=== PATIENT | female | born 1950 | race Caucasian/White ===

== ENCOUNTER 2016-11-03 17:53 | Emergency (ER) | payer OTHER ==
[~2016-11-03] VITALS: Ht 162.6 cm; Wt 54.9 kg
[2016-11-03 18:07] VITALS: TEMP 36.7; Ht 162.6 cm; Wt 54.9 kg
[2016-11-03] MEDS ORDERED: SODIUM CHLORIDE 0.9% 1000ML 1,000 ML IV STA (18:18)
--- NOTE | 2016-11-03 18:22 | EMERGENCY ROOM VISIT NOTE ---
History Report prepared by Blank: Yoselin Macias Under the Supervision of: Dr. Daniela Monte M.D. First contact with patient: 18:09 Chief Complaint: DIZZY Stated Complaint: DIZINESS - SENT BY [facility] History of Present Illness The patient is a 66 year old female who presents to the Emergency Room with complaints of persistent dizziness throughout the day today. She describes it as feeling shaky and woozy. Her symptoms are worst when she is changes position. She does not feel the room spinning. The patient initially went to Urgent Care for her symptoms but was referred to the emergency room. Upon arrival, she also complains of mild shortness of breath and an occasional fluttering sensation in her chest. The patient does report a fall that occurred 4 weeks ago after slipping on a step. She has been having improving left leg soreness since then. Denies cough, chest pain, cough, nausea, vomiting, bowel troubles, rectal bleeding, or other complaints. Source of History: patient Onset: today Position: other (Global) Quality: other (shaky, woozy) Timing: other (persistent) Modifying Factors (Worsening): other (position changes) Associated Symptoms: + SOB, No chest pain, No cough, No hematochezia, No nausea, No vomiting Review of Systems See HPI for pertinent positives & negatives. A total of 10 systems reviewed and were otherwise negative. Past Medical & Surgical Medical Problems: (1) Osteoporosis Family History No pertinent family history stated. Social History Smoking Status: Never Smoker Marital Status: Housing Status: lives with family Occupation Status: other (housewife) Current/Historical Medications Scheduled Aspirin (Aspirin Ec), 81 MG PO DAILY Calcium Carbonate (Calcium), 600 MG PO BID Ibandronate Sodium (Boniva), 150 MG PO MONTHLY Multivitamin (Multivitamin), 1 TAB PO DAILY Scheduled PRN Meclizine HCl (Meclizine HCl), 1 TAB PO Q8 PRN for vertigo Allergies Coded Allergies: Sulfa Drugs (Unverified Adverse Reaction, Intermediate, RASH, 11/03/16) Physical Exam Vital Signs Date Time Temp Pulse Resp B/P Pulse Ox O2 Delivery O2 Flow Rate FiO2 11/03/16 21:02 66 16 125/63 98 Room Air 11/03/16 19:33 78 18 125/72 98 Room Air 11/03/16 18:31 71 149/83 96 87 145/76 76 134/76 11/03/16 18:20 91 11/03/16 18:07 36.7 84 16 144/80 100 Room Air Physical Exam Vital signs reviewed. General: Well-appearing 66 year old female, in no significant distress. HEENT: No scleral icterus, PERRLA, neck supple. Atraumatic. Cardiovascular: Regular rate and rhythm, no extra sounds. Pulmonary: Clear to auscultation bilaterally, normal work of breathing. Abdomen: Soft, nontender, nondistended, positive bowel sounds. Musculoskeletal: Atraumatic, no peripheral edema. Neurologic: Patient awake alert and oriented x 3, full strength in all 4 extremities. Cranial nerves 2 through 12 grossly intact. Skin: Warm, dry, no rash Medical Decision & Procedures ER Provider Diagnostic Interpretation: CT results as stated below per my review and radiologist interpretation: CT HEAD WITHOUT CONTRAST (CT) CLINICAL HISTORY: Head trauma, vertigo. COMPARISON STUDY: No previous studies for comparison. TECHNIQUE: Axial CT of the brain is performed from the vertex to the skull base. IV contrast was not administered for this examination. CT DOSE: 537.48 mGy.cm FINDINGS: No intra or extra-axial mass lesions are visualized. There is no CT evidence of acute cortical infarction. There is no evidence of midline shift. There is no acute hemorrhage. No calvarial fractures are visualized. There are patchy white matter hypodensities likely on a small vessel basis. There is no evidence of pathologic ventricular dilatation. There is no evidence of acute sinusitis IMPRESSION: No acute intracranial findings Electronically signed by: Vadim Baker M.D. 11/03/2016 7:55 PM Dictated Date/Time: 11/03/2016 7:54 PM Laboratory Results 11/03/16 18:40 Red Blood Count 4.64, Mean Corpuscular Volume 87.9, Mean Corpuscular Hemoglobin 30.4, Mean Corpuscular Hemoglobin Concent 34.6, Mean Platelet Volume 10.4, Neutrophils (%) (Auto) 63.4, Lymphocytes (%) (Auto) 29.2, Monocytes (%) (Auto) 5.4, Eosinophils (%) (Auto) 1.6, Basophils (%) (Auto) 0.3, Neutrophils # (Auto) 4.68, Lymphocytes # (Auto) 2.16, Monocytes # (Auto) 0.40, Eosinophils # (Auto) 0.12, Basophils # (Auto) 0.02 11/03/16 18:40 Test 11/03/16 18:20 11/03/16 18:40 11/03/16 18:46 Urine Color YELLOW Urine Appearance CLEAR (CLEAR) Urine pH 7.0 (4.5-7.5) Urine Specific Neligh 1.004 (1.000-1.030) Urine Protein NEG (NEG) Urine Glucose (UA) NEG (NEG) Urine Ketones NEG (NEG) Urine Occult Blood NEG (NEG) Urine Nitrite NEG (NEG) Urine Bilirubin NEG (NEG) Urine Urobilinogen NEG (NEG) Urine Leukocyte Esterase NEG (NEG) White Blood Count 7.39 K/uL (4.8-10.8) Red Blood Count 4.64 M/uL (4.2-5.4) Hemoglobin 14.1 g/dL (12.0-16.0) Hematocrit 40.8 % (37-47) Mean Corpuscular Volume 87.9 fL (80-100) Mean Corpuscular Hemoglobin 30.4 pg (25-34) Mean Corpuscular Hemoglobin Concent 34.6 g/dl (32-36) Platelet Count 247 K/uL (130-400) Mean Platelet Volume 10.4 fL (7.4-10.4) Neutrophils (%) (Auto) 63.4 % Lymphocytes (%) (Auto) 29.2 % Monocytes (%) (Auto) 5.4 % Eosinophils (%) (Auto) 1.6 % Basophils (%) (Auto) 0.3 % Neutrophils # (Auto) 4.68 K/uL (1.4-6.5) Lymphocytes # (Auto) 2.16 K/uL (1.2-3.4) Monocytes # (Auto) 0.40 K/uL (0.11-0.59) Eosinophils # (Auto) 0.12 K/uL (0-0.5) Basophils # (Auto) 0.02 K/uL (0-0.2) RDW Standard Deviation 41.6 fL (36.4-46.3) RDW Coefficient of Variation 13.0 % (11.5-14.5) Immature Granulocyte % (Auto) 0.1 % Immature Granulocyte # (Auto) 0.01 K/uL (0.00-0.02) Anion Gap 12.0 mmol/L (3-11) Est Creatinine Clear Calc Drug Dose 64.6 ml/min Estimated GFR () 97.8 Estimated GFR (Non- 84.4 BUN/Creatinine Ratio 16.5 (10-20) Calcium Level 9.2 mg/dl (8.5-10.1) Magnesium Level 2.3 mg/dl (1.8-2.4) Total Bilirubin 0.4 mg/dl (0.2-1) Direct Bilirubin < 0.1 mg/dl (0-0.2) Aspartate Amino Transf (AST/SGOT) 12 U/L (15-37) Alanine Aminotransferase (ALT/SGPT) 22 U/L (12-78) Alkaline Phosphatase 67 U/L (45-117) Total Creatine Kinase 69 U/L (26-192) Creatine Kinase MB 1.1 ng/ml (0.5-3.6) Creatine Kinase MB Ratio 1.6 (0-3.0) Total Protein 7.2 gm/dl (6.4-8.2) Albumin 4.0 gm/dl (3.4-5.0) Bedside Troponin I 0.000 ng/ml (0-0.045) Laboratory results per my review. Medications Administered Medications (Trade) Dose Ordered Sig/Johnie Route Start Time Stop Time Status Last Admin Dose Admin Sodium Chloride (Nss 1000ml) 1,000 ml @ 200 mls/hr Q5H STAT IV 11/03/16 18:18 11/03/16 21:15 DC 11/03/16 18:44 200 MLS/HR Meclizine HCl (Antivert Tab) 25 mg NOW STAT PO 11/03/16 19:06 11/03/16 19:07 DC 11/03/16 20:44 25 MG Meclizine HCl (Antivert 25MG Home Pack) 1 homepack UD ONCE PO 11/03/16 20:30 11/03/16 20:31 DC 11/03/16 20:44 1 HOMEPACK ECG Indication: other (dizzy) Rate (beats per minute): 72 Rhythm: normal sinus Findings: RBBB (incomplete), no acute ischemic change, no ectopy ED Course 1816: The patient was evaluated in room B10. A complete history and physical examination was performed. Ordered NSS 1000 ml @ 200 mls/hr IV. 1905: Ordered Meclizine HCl 25 mg PO. 2015: Upon reevaluation, the patient appeared to have improvement of her symptoms. I discussed findings with the patient. She verbalized agreement of the treatment plan. The patient was discharged home. 2030: Ordered Meclizine HCl 1 homepack PO. Medical Decision Differential diagnosis: Etiologies such as benign positional vertigo, dehydration, hypovolemia, anemia, tumor, infection, hypoglycemia, electrolyte abnormalities, cardiac sources, intracerebral event, toxicologic, neurologic, as well as others were entertained. This pt was placed on the warp placer. IV access was obtained and lab work was drawn. Pt was hydrated with NSS. She was given meclizine [address] was performed and is negative for acute abnl. Lab work is unrevealing. Pt was reevaluated and informed of the findings. Pt was d/c with meclizidenia HP to care of her . She will f/u with her PCP this week for reevaluation. She will return to the ED for worsening of symptoms or any medical concerns. Impression Primary Impression: Vertigo Scribe Attestation The scribe's documentation has been prepared under my direction and personally reviewed by me in its entirety. I confirm that the note above accurately reflects all work, treatment, procedures, and medical decision making performed by me. Departure Information Dispostion Home / Self-Care Prescriptions Meclizine HCl (Meclizine HCl) 25 Mg Tab 1 TAB PO Q8 Y for vertigo, #14 TAB Prov: Daniela Monte M.D. 11/03/16 Referrals Janelle Luevano D.O. (PCP) Patient Instructions My [facility] Additional Instructions Diagnosis: Vertigo Drink plenty of clear fluids. Meclizine 25 mg every 8 hours as needed for vertigo. Follow-up with your physician this week for reevaluation. Return to the ER for worsening of symptoms or any medical concerns.
[2016-11-03 18:58] LABS: BASO % 0.3 %; BASO ABS # 0.02 K/uL (0-0.2); COMPLETE YES; EOS % 1.6 %; HEMATOCRIT 40.8 % (37-47); IG% 0.1 %; LYMPH % 29.2 %; LYMPH ABS # 2.16 K/uL (1.2-3.4); MEAN CELL VOLUME 87.9 fL (80-100); MEAN CORPUSCULAR HEMOGLOBIN 30.4 pg (25-34); MEAN CORPUSCULAR HGB CONC 34.6 g/dl (32-36); MEAN PLATELET VOLUME 10.4 fL (7.4-10.4); MONO % 5.4 %; NEUT % 63.4 %; PLATELET COUNT 247 K/uL (130-400); RED BLOOD COUNT 4.64 M/uL (4.2-5.4); WHITE BLOOD COUNT 7.39 K/uL (4.8-10.8)
[2016-11-03] MEDS ORDERED: ASPI81TA28 PO (19:04)
[2016-11-03] MEDS ORDERED: CALC-393 PO (19:04)
[2016-11-03] MEDS ORDERED: IBAN150T PO (19:04)
[2016-11-03] MEDS ORDERED: MULT-506 PO (19:04)
[2016-11-03] MEDS ORDERED: MECLIZINE HCL 25 MG TAB PO STA (19:06)
[2016-11-03 19:07] LABS: URINE APPEARANCE CLEAR (CLEAR); URINE BILIRUBIN NEG (NEG); URINE COLOR YELLOW; URINE NITRITE NEG (NEG); URINE SPECIFIC GRAVITY 1.004 (1.000-1.030); UROBILINOGEN NEG (NEG); ZZUR CULT IF INDIC CLEAN CATCH NO
[2016-11-03 19:14] LABS: MANUAL MICROSCOPIC REQUIRED? NO; REVIEW REQ? NO
[2016-11-03 19:16] LABS: ALT/SGPT 22 U/L (12-78); BLOOD UREA NITROGEN 12 mg/dl (7-18); BUN/CREATININE RATIO 16.5 (10-20); CALCIUM 9.2 mg/dl (8.5-10.1); CARBON DIOXIDE 25 mmol/L (21-32); CHLORIDE 105 mmol/L (98-107); CREATININE 0.74 mg/dl (0.60-1.20); GLUCOSE 98 mg/dl (70-99); MAGNESIUM 2.3 mg/dl (1.8-2.4); POTASSIUM 3.8 mmol/L (3.5-5.1); SODIUM 142 mmol/L (136-145)
[2016-11-03 19:21] LABS: ALKALINE PHOSPHATASE 67 U/L (45-117); AST/SGOT 12 U/L (15-37); CKMB/CK RATIO 1.6 (0-3.0)
--- NOTE | 2016-11-03 19:57 | DIAGNOSTIC IMAGING REPORT ---
CT HEAD WITHOUT CONTRAST (CT) CLINICAL HISTORY: Head trauma, vertigo. COMPARISON STUDY: No previous studies for comparison. TECHNIQUE: Axial CT of the brain is performed from the vertex to the skull base. IV contrast was not administered for this examination. CT DOSE: 537.48 mGy.cm FINDINGS: No intra or extra-axial mass lesions are visualized. There is no CT evidence of acute cortical infarction. There is no evidence of midline shift. There is no acute hemorrhage. No calvarial fractures are visualized. There are patchy white matter hypodensities likely on a small vessel basis. There is no evidence of pathologic ventricular dilatation. There is no evidence of acute sinusitis IMPRESSION: No acute intracranial findings Electronically signed by: Vadim Baker M.D. 11/03/2016 7:55 PM Dictated Date/Time: 11/03/2016 7:54 PM
[2016-11-03] MEDS ORDERED: ANT25 PO (20:19)
[2016-11-03] MEDS ORDERED: MECLIZINE HCL 25MG HOME PACK PO ONE (20:30)
[2016-11-03 21:02] VITALS: BP 125/63; PULSE 66; O2SAT 98
== END 2016-11-03 21:04 | disposition home or self-care (01) ==
LOC: C.EDB 17:55
DX: R42 Dizziness and giddiness (principal); W01.0XXA Fall on same level from slipping, tripping and stumbling without subsequent striking against object, initial encounter; M81.0 Age-related osteoporosis without current pathological fracture; Z79.82 Long term (current) use of aspirin; Z79.899 Other long term (current) drug therapy